=== PATIENT | female | born 1995 | race African-American/Black ===

== ENCOUNTER 2016-07-03 01:02 | Emergency (ER) | payer MEDICAID ==
[~2016-07-03] VITALS: Ht 175.3 cm; Wt 80.0 kg
[2016-07-03 02:02] VITALS: BP 112/76
== END 2016-07-03 06:53 | disposition home or self-care (01) ==
LOC: ER 03:20
DX: H66.92 Otitis media, unspecified, left ear (principal)
CPT/HCPCS: 99283